=== PATIENT | female | born 1960 | race Two or more races ===

== ENCOUNTER 2017-03-21 19:20 | Emergency (ER) | payer SELFPAY ==
[2017-03-21 19:26] VITALS: BP 169/87; PULSE 64; TEMP 98; BMI 37.8
[2017-03-21] MEDS ORDERED: SODIUM CHLORIDE 1,000 ML IV STA (19:39)
[2017-03-21] MEDS ORDERED: morphine CARPU-JECT 4 MG/1 ML DISP.SYRIN IVPUSH ONE (19:39)
[2017-03-21] MEDS ORDERED: ONDANSETRON 4 MG/2 ML VIAL IVPUSH ONE (19:39)
--- NOTE | 2017-03-21 19:53 | PDOC ---
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 Patient states 1-2 week of dysuria and using a medication she had gotten from [facility] for symptoms. Patient states symptoms worsen. She denies any medical history or medications usage or any other complaints at this time. Timing/Duration: reports: getting worse Quality: reports: moderate Abdominal Pain Onset Location: reports: LLQ, suprapubic Pain Radiation: reports: groin Activities at Onset: reports: no specific activity Treatment Prior to Arrive: improves with: analgesics. worse with: antacids, cold pack, heat, laxative, enema, other Aggravating Factors: worse with: None, Defecation, Eating, Emotional upset, Exertion, [place], Movement, Voiding, Change in position Alleviating Factors: worse with: None, Belching, Shallow Breathing, Defecation, Eating, Holding Breath, Passing Gas, Change in Position, Rest, Voiding, Vomiting Past History - Travel Traveled outside of the country in the last 30 days: No Close contact w/someone who was outside of country & ill: No - Past Medical History Allergies/Adverse Reactions: Allergies Allergy/AdvReac Type Severity Reaction Status Date / Time No Known Allergies Allergy Verified 03/21/17 19:25 Home Medications: Ambulatory Orders Cephalexin Monohydrate [Keflex -] 500 mg PO BID #20 capsule 03/21/17 Oxycodone HCl/Acetaminophen [Endocet 5-325 Tablet] 1 each PO Q6H PRN #16 tablet MDD 4 tabs 03/21/17 Tamsulosin HCl [Flomax -] 0.4 mg PO DAILY #30 cap.er.24h 03/21/17 Ibuprofen 600 mg PO Q6H PRN #20 tablet 03/22/17 Diabetes: No Suicide Attempt (Hx): No Thyroid Disease: No - Surgical History Appendectomy: No Cholecystectomy: No - Immunization History Immunization Up to Date: Yes - Psycho/Social/Smoking Cessation Hx Anxiety: No Suicidal Ideation: No Smoking Status: No Smoking History: Never smoked Have you smoked in the past 12 months: No Number of Cigarettes Smoked Daily: 0 Hx Alcohol Use: No Drug/Substance Use Hx: No Substance Use Type: None Abd/GI Specific PMHX - Complaint Specific PMHX Colitis: No Diverticulitis: No Gall Bladder Disease: No GERD: No Hepatitis: No Irritable Bowel Synd (IBS): No Pancreatitis: No GI Ulcer Disease: No Review of Systems - Review of Systems Able to Perform ROS?: Yes Is the patient limited Montenegrin proficient: No Cardiac (ROS): No: Chest Pain ABD/GI: Yes: Nausea, Vomiting, Abdominal cramping. No: Constipated, Diarrhea, Poor Appetite, Poor Fluid Intake : Yes: Dysuria. No: Burning, Frequency, Flank Pain, Hematuria, Pain, Urgency Musculoskeletal: No: Back Pain All Other Systems: Reviewed and Negative *Physical Exam - Vital Signs Last Vital Signs Temp Pulse Resp BP Pulse Ox 98 F 64 18 169/87 99 03/21/17 19:24 03/21/17 19:24 03/21/17 19:24 03/21/17 19:24 03/21/17 19:24 - Physical Exam General Appearance: Yes: Nourished, Appropriately Dressed, Apparent Distress, Severe Distress. No: Mild Distress, Moderate Distress Respiratory/Chest: positive: Lungs Clear, Normal Breath Sounds. negative: Chest Tender, Respiratory Distress, Accessory Muscle Use, Labored Respiration, Rapid RR Cardiovascular: positive: Regular Rhythm, Regular Rate Gastrointestinal/Abdominal: positive: Tender (LLQ), Soft, Decreased BS, Tenderness (Lt Suprapubic), Other (Large). negative: Distended, Guarding, Rebound Musculoskeletal: positive: Normal Inspection. negative: CVA Tenderness Extremity: positive: Normal Capillary Refill, Normal Inspection, Normal Range of Motion. negative: Pedal Edema, Swelling, Calf Tenderness, Erythema, Inflammation Integumentary: positive: Normal Color, Dry, Warm Neurologic: positive: seasonal recruiter II-XII NML intact, Fully Oriented, Alert, Normal Mood/ Affect, Normal Response, Motor Strength 5/5 ED Treatment Course - LABORATORY CBC & Chemistry Diagram: 03/21/17 20:05 03/21/17 20:05 - RADIOLOGY Radiology Studies Ordered: Category Date Time Status ABDOMEN & PELVIS CT W/O CONTR [CT] Stat CT Scan 03/21/17 19:39 Ordered *DC/Admit/Observation/Transfer Diagnosis at time of Disposition: Renal colic UTI (urinary tract infection) Qualifiers: Urinary tract infection type: acute cystitis Hematuria presence: with hematuria Qualified Code(s): N30.01 - Acute cystitis with hematuria - Discharge Dispostion Disposition: HOME Condition at time of disposition: Improved Admit: No - Prescriptions Prescriptions: Oxycodone HCl/Acetaminophen [Endocet 5-325 Tablet] 1 each PO Q6H PRN #16 tablet MDD 4 tabs PRN Reason: Severe Pain Tamsulosin HCl [Flomax -] 0.4 mg PO DAILY #30 cap.er.24h Ibuprofen 600 mg PO Q6H PRN #20 tablet PRN Reason: Mild Pain Cephalexin Monohydrate [Keflex -] 500 mg PO BID #20 capsule - Referrals Referrals: Lana Meyers MD [Primary Care Provider] - - Patient Instructions Printed Discharge Instructions: Kidney Stones -- Adult, DI for Urinary Tract Infection (UTI) Additional Instructions: Seguimiento con el Dr. Stanley (Urologa) con respecto a la visita de dm. Llame para programar briana gabby shi pronto wild sea posible. Slaughters los medicamentos seg n lo prescrito. No conduzca, sourav alcohol ni opere maquinaria pesada mientras est tomando Oxycondone. Slaughters todos los medicamentos segn las instrucciones. Regresar si el sntoma empeora o cualquier preocupacin para briana evaluacin posterior. He enviado mariaelena medicamentos a [facility], ya que [facility] solo trata con el suministro de 30 a 90 brooks de medicamentos a precio reducido. Si no puede obtener mariaelena medicamentos, por favor regrese a la charmaine de emergencias para briana evaluacin posterior. Vamos a hacer todo lo posible para ayudarle. Follow up with Dr. Stanley (Urology) regarding todays visit. Call to schedule appointment as soon as possible. Take medications as prescribed. Do not drive, drink alcohol, or operate heavy machinery while taking Oxycondone. Take all medications as instructed. Return if symptom worsen or any concerns for further evaluation. I have sent your medications to [facility], as [facility] only deals with 30 to 90 day supply of medications at discounted stoddard. If you are unable to get your medications please return to emergency room for further evaluation. We will try our best to help you. Print Language: GUATEMALAN
[2017-03-21] MEDS ORDERED: ONDANSETRON 4 MG/2 ML VIAL ONE (20:10)
[2017-03-21] MEDS ORDERED: morphine CARPU-JECT 4 MG/1 ML DISP.SYRIN ONE (20:10)
[2017-03-21 20:14] LABS: BASOPHIL 0.9 % (0-2.0); EOSINOPHIL 1.3 % (0-4.5); MCHC 32.4 g/dl (32.0-36.0); MEAN CELL VOLUME 83.3 fl (80-96); MEAN PLT VOLUME 8.9 fl (7.5-11.1); NEUTROPHILS 66.5 % (42.8-82.8); PLATELET COUNT 247 K/MM3 (134-434); RDW 15.5 % (11.6-15.6); WHITE BLOOD COUNT 7.8 K/mm3 (4.0-10.0)
[2017-03-21 20:15] LABS: URINE APPEARANCE SLCLOUDY; URINE BILIRUBIN NEGATIVE (NEGATIVE); URINE COLOR YELLOW; URINE GLUCOSE (UA) NEGATIVE (NEGATIVE); URINE KETONE NEGATIVE (NEGATIVE); URINE NITRITE NEGATIVE (NEGATIVE); URINE UROBILINOGEN NEGATIVE mg/dL (0.2-1.0)
[2017-03-21 20:20] LABS: URINE BLOOD 3+ (NEGATIVE); URINE LEUK ESTERASE 1+ (NEGATIVE); URINE PROTEIN 2+ (NEGATIVE)
[2017-03-21 20:22] LABS: URINE BACTERIA RARE /hpf (NONE SEEN); URINE MUCUS RARE; URINE RBC 2212 /hpf (0-3); URINE WBC 63 /hpf (3-5)
[2017-03-21] MEDS ORDERED: KETOROLAC TROMETHAMINE 30 MG/1 ML VIAL IVPUSH ONE (20:31)
[2017-03-21] MEDS ORDERED: KETOROLAC TROMETHAMINE 30 MG/1 ML VIAL ONE (20:36)
[2017-03-21 20:39] LABS: ALBUMIN 3.8 g/dl (3.4-5.0); AMYLASE 88 U/L (25-115); ANION GAP 6 (8-16); BILIRUBIN,TOTAL 0.4 mg/dL (0.2-1.0); CALCIUM 8.7 mg/dL (8.5-10.1); CO2 30 mmol/L (21-32); CREATININE 1.1 mg/dL (0.55-1.02); GLUCOSE,RANDOM 141 mg/dL (74-106); SGPT/ALT 35 U/L (12-78); TOT PROT 7.5 g/dl (6.4-8.2)
[2017-03-21 20:40] LABS: ALK PHOS 130 U/L (45-117)
[2017-03-21 20:43] LABS: SGOT/AST 26 U/L (15-37)
[2017-03-21] MEDS ORDERED: TAMSULOSIN HCL 0.4 MG CAP.ER.24H (FP) PO ONE (22:17)
[2017-03-21] MEDS ORDERED: CEFTRIAXONE 1 GM in DEXTROSE 5%-WATER - 50 ML IVPB ONE (22:17)
[2017-03-21] MEDS ORDERED: CEFTRIAXONE 50 ML ONE (22:32)
[2017-03-21] MEDS ORDERED: TAMSULOSIN HCL 0.4 MG CAP.ER.24H (FP) ONE (22:43)
[2017-03-22] MEDS ORDERED: OXYCODONE/APAP 5/325MG COMBO TABLET PO ONE (00:14)
[2017-03-22] MEDS ORDERED: IBUPROFEN 600 MG TABLET (FP) PO ONE ×2 (00:14→00:31)
[2017-03-22] MEDS ORDERED: CEPHALEXIN MONOHYDRATE 500 MG CAPSULE (UD) PO ONE (00:14)
[2017-03-22] MEDS ORDERED: oxyCODONE HCL 5 MG TABLET PO ONE (00:16)
[2017-03-22] MEDS ORDERED: OXYCODONE/APAP 5/325MG COMBO TABLET ONE ×2 (00:29→00:39)
[2017-03-22] MEDS ORDERED: CEPHALEXIN MONOHYDRATE 250 MG CAPSULE (FP) ONE (00:31)
[2017-03-22] MEDS ORDERED: oxyCODONE HCL 5 MG TABLET ONE (00:49)
== END 2017-03-22 00:56 | disposition home or self-care (01) ==
LOC: JER 19:20
PROC: 3E03329 Introduction of Other Anti-infective into Peripheral Vein, Percutaneous Approach (ICD-10-PCS; principal; 2017-03-21)
PROC: 3E0333Z Introduction of Anti-inflammatory into Peripheral Vein, Percutaneous Approach (ICD-10-PCS; 2017-03-21)
PROC: 3E033NZ Introduction of Analgesics, Hypnotics, Sedatives into Peripheral Vein, Percutaneous Approach (ICD-10-PCS; 2017-03-21)
PROC: 3E033GC Introduction of Other Therapeutic Substance into Peripheral Vein, Percutaneous Approach (ICD-10-PCS; 2017-03-21)
DX: N30.01 Acute cystitis with hematuria (principal); N23 Unspecified renal colic
CPT/HCPCS: 36415; 74176-TC; 80053; 81003; 81015; 82150; 83690; 85025; 87086; 99283-25

== ENCOUNTER 2018-07-10 10:41 | Emergency (ER) | payer OTHER ==
[2018-07-10 10:50] VITALS: BP 159/90; PULSE 71; TEMP 98.2; BMI 29.8
[2018-07-10 11:14] LABS: BASO % 0.6 % (0-2.0); EOS % 4.1 % (0-4.5); HEMATOCRIT 38.4 % (32.4-45.2); HEMOGLOBIN 13.1 GM/dL (10.7-15.3); MCH 28.5 pg (25.7-33.7); MCHC 34.3 g/dl (32.0-36.0); MEAN CELL VOLUME 83.2 fl (80-96); MEAN PLT VOLUME 8.6 fl (7.5-11.1); MONO % 8.5 % (3.8-10.2); NEUT % 47.8 % (42.8-82.8); PLATELET COUNT 262 K/MM3 (134-434); RBC 4.61 M/mm3 (3.60-5.2); RDW 15.2 % (11.6-15.6); WHITE BLOOD COUNT 4.9 K/mm3 (4.0-10.0)
[2018-07-10] MEDS ORDERED: KETOROLAC TROMETHAMINE 60 MG/2 ML VIAL IM ONE (11:21)
[2018-07-10] MEDS ORDERED: KETOROLAC TROMETHAMINE 30 MG/1 ML VIAL ONE (11:21)
--- NOTE | 2018-07-10 11:21 | PDOC ---
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 Patient denies nausea or vomiting. Patient denies fever, chills or malaise. Patient reports she was seen 2 years ago for same symptoms and was diagnosed with kidney stone and advised to follow up with urology but never did. Patient has not taken anything for pain Timing/Duration: 1 week Past History - Past Medical History Allergies/Adverse Reactions: Allergies Allergy/AdvReac Type Severity Reaction Status Date / Time No Known Allergies Allergy Verified 03/21/17 19:25 Home Medications: Ambulatory Orders Ibuprofen 800 mg PO Q8H PRN #20 tablet 07/10/18 Ibuprofen [Advil -] 400 mg PO ONCE 07/10/18 COPD: No Diabetes: No Kidney Stones: Yes Thyroid Disease: No - Surgical History Appendectomy: No Cholecystectomy: No - Immunization History Immunization Up to Date: Yes - Suicide/Smoking/Psychosocial Hx Smoking Status: No Smoking History: Never smoked Have you smoked in the past 12 months: No Number of Cigarettes Smoked Daily: 0 Hx Alcohol Use: No Drug/Substance Use Hx: No Substance Use Type: None Review of Systems - Review of Systems Able to Perform ROS?: Yes Is the patient limited Cape Verdean proficient: No Constitutional: No: Chills, Fever Respiratory: No: Symptoms reported Cardiac (ROS): No: Symptoms Reported ABD/GI: Yes: Abdominal cramping (left flank). No: Abdominal Distended, Abd. Pain w/ defecation, Blood Streaked Bowels, Constipated, Diarrhea, Difficulty Swallowing, Nausea, Vomiting : Yes: Burning, Dysuria, Frequency, Flank Pain (left), Urgency. No: Discharge Musculoskeletal: Yes: Muscle Pain (left flank). No: Back Pain, Muscle Weakness All Other Systems: Reviewed and Negative *Physical Exam - Vital Signs Last Vital Signs Temp Pulse Resp BP Pulse Ox 98.2 F 71 24 H 159/90 99 07/10/18 10:49 07/10/18 10:49 07/10/18 10:49 11/03/18 10:49 07/10/18 10:49 - Physical Exam Comments: 07/10/18 11:28 GENERAL: Well developed, well nourished. Awake and alert. mild acute distress. HEENT: Normocephalic, atraumatic. PERRLA, EOMI. No conjunctival pallor. Sclera are non- icteric. Moist mucous membranes. Oropharynx is clear. NECK: Supple. Full ROM. No JVD. Carotid pulses 2+ and symmetric, without bruits. No thyromegaly. No lymphadenopathy. CARDIOVASCULAR: Regular rate and rhythm. No murmurs, rubs, or gallops. Distal pulses are 2+ and symmetric. PULMONARY: No evidence of respiratory distress. Lungs clear to auscultation bilaterally. No wheezing, rales or rhonchi. ABDOMINAL: Soft. Non-tender. Non-distended. No rebound or guarding. No organomegaly. Normoactive bowel sounds. : Moderate tenderness of left flank area. No tenderness to right flank area. No CVA tenderness NEUROLOGICAL: Alert, awake, appropriate. Gait is normal without ataxia. PSYCHIATRIC: Cooperative. Good eye contact. Appropriate mood and affect. General Appearance: Yes: Nourished, Appropriately Dressed, Mild Distress ED Treatment Course - LABORATORY CBC & Chemistry Diagram: 07/10/18 11:00 07/10/18 11:00 Medical Decision Making - Medical Decision Making 07/10/18 11:30 Patient with history of kidney stones present with complain of urinary frequency , urgency, and dysuria for a week will left flank pain. Exam significant for moderate tenderness to left flank area with no CVA tenderness. UA ,urine culture ordered. Toradol 60 mg IM for pain. CBC, CMP labs ordered. CT of abdominal pelvis ordered. Treat based on lab and imaging results 07/10/18 13:24 CBC, CMP shows no acute pathology. CAT scan of the abdominal pelvis shows no acute pathology, CAT scan shows previous stone on the left side nonvisible anymore. patient probably passed a kidney stone. small nonobstructing kidney stone found on the right kidneys. Patient is stable for outpatient treatment with NSAIDs and urology follow-up. *DC/Admit/Observation/Transfer Diagnosis at time of Disposition: Renal colic, Acute left flank pain - Discharge Dispostion Disposition: HOME Condition at time of disposition: Stable Decision to Admit order: No - Prescriptions Prescriptions: Ibuprofen 800 mg PO Q8H PRN #20 tablet PRN Reason: pain - Referrals Referrals: Lana Meyers MD [Primary Care Provider] - Zack Villegas MD [Staff Physician] - - Patient Instructions Printed Discharge Instructions: DI for Acute Pain -- Adult, Kidney Stones -- Adult Additional Instructions: Your labs was normal. You probably passed a kidney stone. Take prescribed medication as needed for pain. Follow-up with preferred urology as soon as possible for reassessment. Print Language: GERMAN - Post Discharge Activity
[2018-07-10] MEDS ORDERED: SODIUM CHLORIDE 1,000 ML IV SCH (11:30)
[2018-07-10 11:42] LABS: URINE APPEARANCE CLEAR; URINE BILIRUBIN NEGATIVE (<2.0 mg/dL); URINE COLOR LTYELLOW; URINE GLUCOSE (UA) NEGATIVE (NEGATIVE); URINE KETONE NEGATIVE (NEGATIVE); URINE LEUK ESTERASE NEGATIVE (NEGATIVE); URINE NITRITE NEGATIVE (NEGATIVE); URINE PROTEIN NEGATIVE (NEGATIVE); URINE UROBILINOGEN NEGATIVE mg/dL (0.2-1.0)
[2018-07-10] MEDS ORDERED: KETOROLAC TROMETHAMINE 60 MG/2 ML VIAL ONE (11:43)
[2018-07-10 11:47] LABS: ALBUMIN 3.6 g/dl (3.4-5.0); ALK PHOS 127 U/L (45-117); ANION GAP 8 MMOL/L (8-16); BILIRUBIN,TOTAL 0.5 mg/dL (0.2-1); BLOOD UREA NITROGEN 16 mg/dL (7-18); CALCIUM 8.4 mg/dL (8.5-10.1); CHLORIDE 104 mmol/L (98-107); CO2 28 mmol/L (21-32); CREATININE 0.7 mg/dL (0.55-1.3); GLUCOSE,RANDOM 113 mg/dL (74-106); POTASSIUM 4.3 mmol/L (3.5-5.1); SGOT/AST 14 U/L (15-37); SGPT/ALT 29 U/L (13-61); SODIUM 140 mmol/L (136-145); TOT PROT 6.9 g/dl (6.4-8.2)
== END 2018-07-10 13:48 | disposition home or self-care (01) ==
LOC: JER 10:41
PROC: 3E0233Z Introduction of Anti-inflammatory into Muscle, Percutaneous Approach (ICD-10-PCS; principal; 2018-07-10)
DX: N20.0 Calculus of kidney (principal); Z87.442 Personal history of urinary calculi
CPT/HCPCS: 36415; 74176-TC; 80053; 81003; 85025; 87086; 96360; 96361; 96372; 99282-25; J7030

== ENCOUNTER 2020-12-12 12:26 | Emergency (ER) | payer OTHER ==
[2020-12-12 12:30] VITALS: BP 125/74; PULSE 85; TEMP 98.3; BMI 32.8
[2020-12-13 10:09] LABS: SARS-CoV-2 NAA Not Detected (Not Detected)
== END 2020-12-12 13:42 | disposition home or self-care (01) ==
LOC: JER 12:26
DX: L03.031 Cellulitis of right toe (principal); Z11.52 Encounter for screening for COVID-19
CPT/HCPCS: 99283-25; C9803; G2251-GT; U0003; U0005

== ENCOUNTER 2020-12-15 11:07 | Emergency (ER) | payer OTHER ==
[2020-12-15 11:27] VITALS: BP 125/80; PULSE 65; TEMP 98; BMI 33.6
== END 2020-12-15 12:28 | disposition home or self-care (01) ==
LOC: JER 11:07
DX: L03.031 Cellulitis of right toe (principal)
CPT/HCPCS: 99281-25

== ENCOUNTER 2022-02-02 10:25 | Emergency (ER) | payer OTHER ==
[2022-02-02 10:33] VITALS: BP 106/69; PULSE 91; TEMP 98.2; BMI 34.9
== END 2022-02-02 12:30 | disposition home or self-care (01) ==
LOC: JER 10:25
DX: U07.1 COVID-19 (principal)
CPT/HCPCS: 0241U-QW; 99283-25

== ENCOUNTER 2022-02-07 11:02 | Emergency (ER) | payer OTHER ==
[2022-02-07 11:14] VITALS: BP 127/84; PULSE 76; TEMP 98.1; BMI 33.6
[2022-02-07] MEDS ORDERED: METHOCARBAMOL 500 MG TABLET PO ONE (12:33)
[2022-02-07] MEDS ORDERED: KETOROLAC TROMETHAMINE 30 MG/1 ML VIAL IM ONE (12:33)
[2022-02-07] MEDS ORDERED: METHOCARBAMOL 500 MG TABLET ONE (12:34)
[2022-02-07] MEDS ORDERED: KETOROLAC TROMETHAMINE 30 MG/1 ML VIAL ONE ×2 (12:34)
== END 2022-02-07 15:38 | disposition home or self-care (01) ==
LOC: JERFT 11:02 → JER 11:02
PROC: 3E0233Z Introduction of Anti-inflammatory into Muscle, Percutaneous Approach (ICD-10-PCS; principal; 2022-02-07)
DX: M54.50 Low back pain, unspecified (principal)
CPT/HCPCS: 72100-TC-FY; 99284-25